=== PATIENT | female | born 1980 | race Caucasian/White ===

== ENCOUNTER 2016-05-10 17:35 | Emergency (ER) | payer SELFPAY ==
[~2016-05-10] VITALS: Ht 162.6 cm; Wt 74.0 kg
[~2016-05-10 17:35] MED LIST: BENADRYL 50MG C50 MG PO; CEPHALEXIN500 MG PO; CIMETIDINE400 M1 PO; MACROBID100 MG PO; METRONIDAZOL500 MG PO; PREDNISONE10 MG PO; ROBITUSSIN AC10 ML PO; ULTRAM50 M1 PO
[2016-05-10] MEDS ORDERED: ULTRAM50 M1 PO (19:05)
[2016-05-10 19:23] VITALS: BP 128/87
== END 2016-05-10 19:23 | disposition home or self-care (01) | DRG 605 ==
LOC: ED 17:35
DX: S20.211A Contusion of right front wall of thorax, initial encounter (principal); F17.210 Nicotine dependence, cigarettes, uncomplicated; W01.190A Fall on same level from slipping, tripping and stumbling with subsequent striking against furniture, initial encounter; Y93.89 Activity, other specified; Y92.008 Other place in unspecified non-institutional (private) residence as the place of occurrence of the external cause

== ENCOUNTER 2017-01-31 19:22 | Emergency (ER) | payer SELFPAY ==
[~2017-01-31] VITALS: Ht 162.6 cm; Wt 81.0 kg
[2017-01-31] MEDS ORDERED: MUCINEX600 MG PO ×2 (19:32→20:29)
[2017-01-31] MEDS ORDERED: TYLENOL PM PO (19:32)
[2017-01-31 19:56] LABS: URINE BILIRUBIN - DIPSTICK NEGATIVE (NEGATIVE); URINE BLOOD DIPSTICK NEGATIVE (NEGATIVE); URINE COLOR YELLOW; URINE GLUCOSE - DIPSTICK NEGATIVE (NEGATIVE); URINE KETONE NEGATIVE (NEGATIVE); URINE LEUK ESTERASE NEGATIVE (NEGATIVE); URINE NITRITE - DIPSTICK NEGATIVE (Negative); URINE PROTEIN - DIPSTICK NEGATIVE (NEG-TRACE); URINE UROBILINOGEN - DIPSTICK 0.2 E.U./dL (0.2)
[2017-01-31 19:58] LABS: URINE CLARITY CLEAR
[2017-01-31 20:07] LABS: INFLUENZA A NONE DETECTED (NONE DETECT); INFLUENZA B NONE DETECTED (NONE DETECT)
[2017-01-31] MEDS ORDERED: AMOXICILLIN500 M2 PO (20:29)
[2017-01-31 20:52] VITALS: BP 155/106
== END 2017-01-31 20:52 | disposition home or self-care (01) | DRG 203 ==
LOC: ED 19:22
PROVIDERS: Emergency Medicine
DX: J40 Bronchitis, not specified as acute or chronic (principal); F17.210 Nicotine dependence, cigarettes, uncomplicated

== ENCOUNTER 2019-01-26 13:32 | Emergency (ER) | payer SELFPAY ==
[~2019-01-26] VITALS: Ht 162.6 cm; Wt 68.0 kg
[~2019-01-26 13:32] MED LIST changes: +AMOXICILLIN500 M2 PO; +KEFLEX500 M1 PO; +MUCINEX600 MG PO; +TYLENOL PM PO
[2019-01-26] MEDS ORDERED: PREDNISONE50 MG PO (14:03)
[2019-01-26 15:00] VITALS: BP 136/82
== END 2019-01-26 15:05 | disposition home or self-care (01) | DRG 596 ==
LOC: ED 13:32
DX: L40.9 Psoriasis, unspecified (principal); F17.200 Nicotine dependence, unspecified, uncomplicated

== ENCOUNTER 2019-03-14 | Emergency (ER) | payer SELFPAY ==
[~2019-03-14] MED LIST changes: +PREDNISONE50 MG PO
[2019-03-14 21:40] LABS: URINE BILIRUBIN - DIPSTICK NEGATIVE (NEGATIVE); URINE BLOOD DIPSTICK NEGATIVE (NEGATIVE); URINE COLOR YELLOW; URINE GLUCOSE - DIPSTICK NEGATIVE (NEGATIVE); URINE KETONE NEGATIVE (NEGATIVE); URINE LEUK ESTERASE NEGATIVE (NEGATIVE); URINE NITRITE - DIPSTICK NEGATIVE (Negative); URINE PROTEIN - DIPSTICK NEGATIVE (NEG-TRACE); URINE SPECIFIC GRAVITY 1.015; URINE UROBILINOGEN - DIPSTICK 0.2 E.U./dL (0.2)
[2019-03-14 21:42] LABS: IMMATURE GRANULOCYTES 0.3 % (0.0-5.0); MEAN CORPUSCULAR HGB CONC 33.2 g/L CALC (32.0-36.0); NEUT# 6.5 thou/uL (2.00-7.15); RED BLOOD COUNT 3.55 mill/uL (4.20-5.60); RED CELL DISTRI WIDTH 13.1 % (11.5-15.5)
[2019-03-14 21:43] LABS: COCAINE NEGATIVE (NEGATIVE); METHADONE NEGATIVE (NEGATIVE); TETRAHYDROCANNABIONOL NEGATIVE (NEGATIVE)
[2019-03-14 21:44] LABS: BARBITURATES NEGATIVE (NEGATIVE); OXCYCODONE NEGATIVE (NEGATIVE); TRICYLIC ANTIDEPRESSANTS NEGATIVE (NEGATIVE)
[2019-03-14 21:53] LABS: ALKALINE PHOSPHATASE 102 u/l (38-126); BUN 5 mg/dL (7-17); BUN/CREATININE RATIO 11 (12-20 (CALC)); CHLORIDE 100 mmol/l (95-108); CREATININE 0.5 mg/dL (0.5-1.0); GFR > 60 ML/MIN (>=60 (CALC)); GFR FOR AFR.AMER. > 60 ML/MIN (>=60 (CALC)); LIPASE 209 u/l (23-300); POTASSIUM 3.1 mmol/l (3.5-5.1); SGOT/AST 30 u/l (14-36); SODIUM 135 mmol/l (137-146)
[2019-03-14 21:57] LABS: ALBUMIN 2.1 g/dL (3.2-5.0); AMYLASE < 30 u/l (30-110); ANION GAP 7 (6-22 (CALC)); BILIRUBIN, TOTAL 0.2 mg/dL (0.0-1.4); CARBON DIOXIDE 31 mmol/l (22-30)
[2019-03-14 21:59] LABS: HEMATOCRIT 35.2 % (37.0-47.0); HEMOGLOBIN 11.7 g/dl (12.0-16.0); MEAN CELL VOLUME 99.2 fL CALC (80.0-100.0)
[2019-03-14] MEDS ORDERED: ZITHROMAX250 MG PO (23:35)
[2019-03-14] MEDS ORDERED: CALCIUM GLUCONATE 500 MG PO (23:35)
== END 2019-03-15 00:36 | disposition home or self-care (01) | DRG 195 ==
PROVIDERS: Emergency Medicine
DX: J18.9 Pneumonia, unspecified organism (principal); E83.51 Hypocalcemia; E87.6 Hypokalemia; F17.210 Nicotine dependence, cigarettes, uncomplicated